=== PATIENT | male | born 1960 | race Caucasian/White ===

== ENCOUNTER 2020-08-18 11:25 | Emergency (ER) | payer SELFPAY ==
[~2020-08-18 11:25] MED LIST: LIDOCAINE PATCH REMOVAL MC SCH
[2020-08-18 11:34] VITALS: TEMP 97.9; BMI 23.1
[2020-08-18] MEDS ORDERED: LIDOCAINE 5% TOPICAL PATCH TP ONE (12:01)
[2020-08-18] MEDS ORDERED: traMADol HCL 50 MG TABLET PO ONE (12:03)
[2020-08-18] MEDS ORDERED: LIDOCAINE 5% TOPICAL PATCH ONE (12:05)
[2020-08-18] MEDS ORDERED: traMADol HCL 50 MG TABLET ONE (12:07)
[2020-08-18 12:42] VITALS: BP 122/68; PULSE 80
== END 2020-08-18 12:38 | disposition home or self-care (01) ==
LOC: JERFT 11:25
DX: M25.562 Pain in left knee (principal)
CPT/HCPCS: 73562-TC-LT-FY; 99283-25